=== PATIENT | male | born 1985 | race American Indian/Alaskan Native ===

== ENCOUNTER 2018-12-31 20:57 | Emergency (ER) | payer OTHER ==
--- NOTE | 2019-01-01 00:19 | Emergency Department Report ---
ED Alcohol HPI - General Chief Complaint: Alcohol Stated Complaint: ETOH Time Seen by Provider: 12/31/18 21:54 Source: EMS Mode of arrival: Stretcher Limitations: Physical Limitation - History of Present Illness Initial Comments: Patient is a 33-year-old male who presents with alcohol intoxication. Patient was brought in by EMS and was found wandering the streets. Further history is limited due to patient's intoxication. MD Complaint: alcohol intoxication Last Drink: unknown - Related Data Home Medications Medication Instructions Recorded Confirmed Last Taken No Known Home Medications [No 02/19/15 02/19/15 Unknown Reported Home Medications] Allergies Allergy/AdvReac Type Severity Reaction Status Date / Time No Known Allergies Allergy Verified 02/19/15 05:41 ED Review of Systems ROS: Stated complaint: ETOH Other details as noted in HPI Comment: Unobtainable due to pts medical conditions ED Past Medical Hx - Past Medical History Previous Medical History?: No - Surgical History Past Surgical History?: No - Social History Smoking Status: Unknown if ever smoked Substance Use Type: Alcohol - Medications Home Medications: Home Medications Medication Instructions Recorded Confirmed Last Taken Type No Known Home Medications [No 02/19/15 02/19/15 Unknown History Reported Home Medications] ED Physical Exam - General Limitations: Physical Limitation General appearance: alert, in no apparent distress - Head Head exam: Present: atraumatic, normocephalic - Eye Eye exam: Present: normal appearance - ENT ENT exam: Present: mucous membranes moist - Neck Neck exam: Present: normal inspection - Respiratory Respiratory exam: Present: normal lung sounds bilaterally. Absent: respiratory distress - Cardiovascular Cardiovascular Exam: Present: regular rate, normal rhythm. Absent: systolic mur mur, diastolic murmur, rubs, gallop - GI/Abdominal GI/Abdominal exam: Present: soft, normal bowel sounds - Rectal Rectal exam: Present: deferred - Extremities Exam Extremities exam: Present: normal inspection - Back Exam Back exam: Present: normal inspection - Neurological Exam Neurological exam: Present: other (intoxicated ) - Psychiatric Psychiatric exam: Present: other (intoxicated ) - Skin Skin exam: Present: warm, dry, intact, normal color. Absent: rash ED Course Vital Signs 12/31/18 21:48 Temperature 98 F Pulse Rate 77 Respiratory 16 Rate Blood Pressure 119/86 O2 Sat by Pulse 98 Oximetry ED Medical Decision Making - Lab Data Lab Results 12/31/18 Range/Units 22:02 Plasma/Serum Alcohol 0.20 H (0-0.07) % - Medical Decision Making Medical diagnosis: Alcohol intoxication. I will get a alcohol level while patient to be sober and will discharge patient back home. Critical care attestation.: If time is entered above; I have spent that time in minutes in the direct care of this critically ill patient, excluding procedure time. ED Disposition Clinical Impression: Alcohol intoxication Qualifiers: Complication of substance-induced condition: uncomplicated Qualified Code(s): F10.920 - Alcohol use, unspecified with intoxication, uncomplicated Disposition: DC-01 TO HOME OR SELFCARE Is pt being admited?: No Does the pt Need Aspirin: No Condition: Stable Referrals: DELMA GARCIA MD [Primary Care Provider] - 3-5 Days
[2019-01-01] MEDS ORDERED: XYLOCAINE 2% INFILTRATI ONE (01:36)
[2019-01-01 04:33] VITALS: BP 121/79
== END 2019-01-01 04:34 | disposition home or self-care (01) ==
LOC: ED 20:57
DX: F10.920 Alcohol use, unspecified with intoxication, uncomplicated (principal); Z79.899 Other long term (current) drug therapy
CPT/HCPCS: 36415; 99284; G0480; 80320

== ENCOUNTER 2019-07-06 19:05 | Emergency (ER) | payer SELFPAY ==
--- NOTE | 2019-07-06 19:15 | Emergency Department Report ---
Blank Doc - Documentation Documentation: This is a 34-year-old male that presents with lower back pain after heavy lift ing. This initial assessment/diagnostic orders/clinical plan/treatment(s) is/are subject to change based on patient's health status, clinical progression and re- assessment by fellow clinical providers in the ED. Further treatment and workup at subsequent clinical providers discretion. Patient/guardians urged not to elope from the ED as their condition may be serious if not clinically assessed a nd managed. Initial orders include: 1- Patient sent to [facility] for further evaluation and treatment 2- xray
--- NOTE | 2019-07-06 19:49 | XRay Report ---
Lumbosacral spine, 2 views INDICATION: Pain following injury 4 days ago FINDINGS: The vertebral body heights and disc spaces are preserved. No fracture or spondylolisthesis. No spurring or arthritis. No bony abnormality identified. Impression: Normal lumbar spine radiograph. Signer Name: Chip Obregon MD Signed: 07/06/2019 7:45 PM Workstation Name: [id number]
--- NOTE | 2019-07-07 00:27 | Emergency Department Report ---
ED Back Pain/Injury HPI - General Chief Complaint: Back Pain/Injury Stated Complaint: LOWER BACK PAIN Time Seen by Provider: 07/06/19 19:14 Source: patient Limitations: No Limitations - History of Present Illness Initial Comments: This is a 34-year-old male that presents with lower back pain after heavy lifting. Pain described as 5/10 there is no numbness no tingling paralysis no loss or decrease in bowel or bladder function pain radiation low back to right lower extremity is remains amateur to baseline per patient was steady gait. MD Complaint: back injury Onset/Timin -: days(s) Similar Symptoms Previously: Yes Place: work Radiation: right leg Severity: moderate Severity scale (0 -10): 5 Quality: aching Consistency: constant Improves With: none Worsens With: movement, sitting upright Context: turning/twisting, bending Associated Symptoms: denies: numbness, difficulty urinating, incontinence, fever/chills - Related Data Previous Rx's Medication Instructions Recorded Last Taken Type Cyclobenzaprine [Flexeril] 10 mg PO TID PRN #15 tablet 07/07/19 Unknown Rx Menthol/Camphor [[place] 1 applicatio TP QID PRN #1 tube 07/07/19 Unknown Rx Ointment] Naproxen [Naprosyn] 500 mg PO BID 10 Days #20 tablet 07/07/19 Unknown Rx Allergies Allergy/AdvReac Type Severity Reaction Status Date / Time No Known Allergies Allergy Verified 02/19/15 05:41 ED Review of Systems ROS: Stated complaint: LOWER BACK PAIN Other details as noted in HPI Constitutional: denies: chills, fever Eyes: as per HPI ENT: denies: ear pain, throat pain Respiratory: denies: cough, shortness of breath, wheezing Cardiovascular: denies: chest pain, palpitations Endocrine: no symptoms reported Gastrointestinal: denies: abdominal pain, nausea, diarrhea Genitourinary: denies: urgency, dysuria Musculoskeletal: back pain, other. denies: joint swelling, arthralgia, myalgia Skin: denies: rash, lesions Neurological: denies: headache, weakness, paresthesias ED Past Medical Hx - Past Medical History Previous Medical History?: No - Surgical History Past Surgical History?: No - Social History Smoking Status: Current Every Day Smoker Substance Use Type: None - Medications Home Medications: Home Medications Medication Instructions Recorded Confirmed Last Taken Type Cyclobenzaprine [Flexeril] 10 mg PO TID PRN #15 tablet 07/07/19 Unknown Rx Menthol/Camphor [[place] 1 applicatio TP QID PRN #1 tube 07/07/19 Unknown Rx Ointment] Naproxen [Naprosyn] 500 mg PO BID 10 Days #20 tablet 07/07/19 Unknown Rx ED Physical Exam - General Limitations: No Limitations General appearance: alert, in no apparent distress - Head Head exam: Present: atraumatic, normocephalic - Eye Eye exam: Present: normal appearance, PERRL, EOMI Pupils: Present: normal accommodation - ENT ENT exam: Present: normal orophraynx, mucous membranes moist, TM's normal bilaterally, normal external ear exam - Neck Neck exam: Present: normal inspection, tenderness, full ROM. Absent: lymphadenopathy, thyromegaly - Respiratory Respiratory exam: Present: normal lung sounds bilaterally. Absent: respiratory distress, wheezes, stridor, chest wall tenderness - Cardiovascular Cardiovascular Exam: Present: regular rate, normal rhythm, normal heart sounds. Absent: systolic murmur, diastolic murmur, rubs, gallop - GI/Abdominal GI/Abdominal exam: Present: soft, normal bowel sounds. Absent: distended, tenderness, guarding, rebound, rigid, bruit, hernia - Rectal Rectal exam: Present: deferred - Extremities Exam Extremities exam: Present: normal inspection, full ROM, normal capillary refill. Absent: tenderness, pedal edema, joint swelling, calf tenderness - Back Exam Back exam: Present: normal inspection, full ROM, tenderness. Absent: muscle spasm, paraspinal tenderness, vertebral tenderness - Neurological Exam Neurological exam: Present: alert, oriented X3, CN II-XII intact, normal gait, reflexes normal. Absent: motor sensory deficit - Psychiatric Psychiatric exam: Present: normal affect, normal mood - Skin Skin exam: Present: warm, dry, intact, normal color. Absent: rash ED Course Vital Signs 07/06/19 19:16 Temperature 98.9 F Pulse Rate 94 H Respiratory 18 Rate Blood Pressure 148/87 O2 Sat by Pulse 97 Oximetry ED Medical Decision Making - Radiology Data Radiology results: report reviewed, image reviewed Ordering Physician: DARRYL CONWAY NP Date of Service: 07/06/19 Procedure(s): XR spine lumbosacral 2-3V Accession Number(s): [id number] cc: DARRYL CONWAY NP Fluoro Time In Minutes: Lumbosacral spine, 2 views INDICATION: Pain following injury 4 days ago FINDINGS: The vertebral body heights and disc spaces are preserved. No fracture or spondylolisthesis. No spurring or arthritis. No bony abnormality identified. Impression: Normal lumbar spine radiograph. Signer Name: Chip Obregon MD Signed: 07/06/2019 7:45 PM Workstation Name: [id number] Transcribed By: JOSEP Dictated By: Chip Obregon MD Electronically Authenticated By: Chip Obregon MD Signed Date/Time: 07/06/191944 DD/ 43 TD/TT: - Medical Decision Making This is low back muscle strain plan NSAIDs muscle relaxants analgesic balm moist heat therapy back exercises follow up with PCP in 2-3 days return the ED should symptoms worsen patient verbalizes agreement and understanding of discharge plan DC'd home in stable condition at this time Critical care attestation.: If time is entered above; I have spent that time in minutes in the direct care of this critically ill patient, excluding procedure time. ED Disposition Clinical Impression: Low back strain Qualifiers: Encounter type: initial encounter Qualified Code(s): S39.012A - Strain of muscle, fascia and tendon of lower back, initial encounter Disposition: DC-01 TO HOME OR SELFCARE Is pt being admited?: No Does the pt Need Aspirin: No Condition: Stable Instructions: Low Back Strain (ED), Core Strengthening Exercises (GEN) Prescriptions: Cyclobenzaprine [Flexeril] 10 mg PO TID PRN #15 tablet PRN Reason: Muscle Spasm Naproxen [Naprosyn] 500 mg PO BID 10 Days #20 tablet Menthol/Camphor [[place] Ointment] 1 applicatio TP QID PRN #1 tube PRN Reason: pain Referrals: PRIMARY CARE, [Primary Care Provider] - 3-5 Days Forms: Work/School Release Form(ED) Time of Disposition: 00:35
[2019-07-07 01:01] VITALS: BP 151/84
== END 2019-07-07 00:59 | disposition home or self-care (01) ==
LOC: ED 19:05
DX: S39.012A Strain of muscle, fascia and tendon of lower back, initial encounter (principal); F17.200 Nicotine dependence, unspecified, uncomplicated; X58.XXXA Exposure to other specified factors, initial encounter; Y93.89 Activity, other specified; Y92.89 Other specified places as the place of occurrence of the external cause; Y99.8 Other external cause status
CPT/HCPCS: 72100

== ENCOUNTER 2020-11-24 09:04 | Emergency (ER) | payer SELFPAY ==
[2020-11-24 09:12] VITALS: BP 153/89
--- NOTE | 2020-11-24 09:45 | Emergency Department Report ---
- General Chief complaint: Skin Rash Stated complaint: RASH ON LT LEG Time Seen by Provider: 11/24/20 09:43 Source: patient Mode of arrival: Ambulatory Limitations: No Limitations - History of Present Illness Initial comments: 35-year-old female presents to the ER today complaint of rash to the anterior aspect of the left thigh. Onset 1 week ago. patient states that the areas were small raised areas when he first started, he admits that he has been picking at it, and no appears to be shallow superficially ulcerated/excoriated areas. He states that they are pruritic and nonpainful. Denies any drainage from them. He denies any apparent insect bites or injury to his thigh. He denies any fever or chills. He denies similar symptoms in the past. MD complaint: rash -: Gradual (1 week ago ) - Related Data Previous Rx's Medication Instructions Recorded Last Taken Type Cyclobenzaprine [Flexeril] 10 mg PO TID PRN #15 tablet 07/07/19 Unknown Rx Menthol/Camphor [[place] 1 applicatio TP QID PRN #1 tube 07/07/19 Unknown Rx Ointment] Naproxen [Naprosyn] 500 mg PO BID 10 Days #20 tablet 07/07/19 Unknown Rx Triamcinolone 0.1% [Kenalog 0.1% 1 applic TP TID #1 tube 11/24/20 Unknown Rx CREAM] cephALEXin [Keflex] 500 mg PO Q8HR #21 cap 11/24/20 Unknown Rx Allergies Allergy/AdvReac Type Severity Reaction Status Date / Time No Known Allergies Allergy Verified 11/24/20 09:08 Abscess Boil HPI - HPI Chief Complaint: Skin Rash Stated Complaint: RASH ON LT LEG Time Seen by Provider: 11/24/20 09:43 Home Medications: Previous Rx's Medication Instructions Recorded Last Taken Type Cyclobenzaprine [Flexeril] 10 mg PO TID PRN #15 tablet 07/07/19 Unknown Rx Menthol/Camphor [[place] 1 applicatio TP QID PRN #1 tube 07/07/19 Unknown Rx Ointment] Naproxen [Naprosyn] 500 mg PO BID 10 Days #20 tablet 07/07/19 Unknown Rx Triamcinolone 0.1% [Kenalog 0.1% 1 applic TP TID #1 tube 11/24/20 Unknown Rx CREAM] cephALEXin [Keflex] 500 mg PO Q8HR #21 cap 11/24/20 Unknown Rx Allergies/Adverse Reactions: Allergies Allergy/AdvReac Type Severity Reaction Status Date / Time No Known Allergies Allergy Verified 11/24/20 09:08 ED Review of Systems ROS: Stated complaint: RASH ON LT LEG Other details as noted in HPI Comment: All other systems reviewed and negative Constitutional: denies: chills, fever Respiratory: denies: cough, shortness of breath, wheezing Cardiovascular: denies: chest pain, palpitations Endocrine: no symptoms reported Gastrointestinal: denies: abdominal pain, nausea, diarrhea Genitourinary: denies: urgency, dysuria Musculoskeletal: denies: back pain, joint swelling, arthralgia Skin: rash Neurological: denies: headache, weakness, paresthesias Psychiatric: denies: anxiety, depression ED Past Medical Hx - Past Medical History Previous Medical History?: No - Surgical History Past Surgical History?: No - Social History Smoking Status: Never Smoker Substance Use Type: None - Medications Home Medications: Home Medications Medication Instructions Recorded Confirmed Last Taken Type Cyclobenzaprine [Flexeril] 10 mg PO TID PRN #15 tablet 07/07/19 Unknown Rx Menthol/Camphor [[place] 1 applicatio TP QID PRN #1 tube 07/07/19 Unknown Rx Ointment] Naproxen [Naprosyn] 500 mg PO BID 10 Days #20 tablet 07/07/19 Unknown Rx Triamcinolone 0.1% [Kenalog 0.1% 1 applic TP TID #1 tube 11/24/20 Unknown Rx CREAM] cephALEXin [Keflex] 500 mg PO Q8HR #21 cap 11/24/20 Unknown Rx ED Physical Exam - General Limitations: No Limitations General appearance: alert, in no apparent distress - Head Head exam: Present: atraumatic, normocephalic, normal inspection - Eye Eye exam: Present: normal appearance, PERRL, EOMI Pupils: Present: normal accommodation - Respiratory Respiratory exam: Absent: respiratory distress - Cardiovascular Cardiovascular Exam: Present: regular rate - Neurological Exam Neurological exam: Present: alert, oriented X3, CN II-XII intact - Psychiatric Psychiatric exam: Present: normal affect, normal mood - Skin Skin exam: Present: other (3 small flesh-colored mildly indurated superficially ulcerated/excoriated areas noted to the anterior aspect of the left thigh; no fluctuance. No tenderness to palpation. No pus drainage or any other drainage noted. No cellulitis.) ED Course Vital Signs 11/24/20 09:10 Temperature 98.2 F Pulse Rate 104 H Respiratory 20 Rate Blood Pressure 153/89 O2 Sat by Pulse 98 Oximetry ED Medical Decision Making - Medical Decision Making The patient is resting comfortably, is alert and in no distress. The patient has a normal mental status per age and is neurologically intact. The rash does not have petechiae or purpura. There are no mucous membrane lesions, no signs of abscess and no bullae. The patient appears well, is able to tolerate food or fluid by mouth and has no signs of systemic toxicity. The history, exam, and current condition do not demonstrate signs of sepsis or serious bacterial infection, [place] spotted fever, meningitis, meningococcemia, Lyme's di sease, toxic shock syndrome or other significant systemic illness requiring further treatment, testing or consultation in the emergency department. The vital signs have been stable. Exact cause of rash unclear, but he will be started on oral antibiotics to cover for possible secondary bacterial infection and topical steroid cream. The patient's condition is stable and appropriate for discharge. The patient or caregiver will pursue further outpatient evaluation with the primary care physician or other designated or consulting physician as indicated in the discharge instructions. Critical care attestation.: If time is entered above; I have spent that time in minutes in the direct care of this critically ill patient, excluding procedure time. ED Disposition Clinical Impression: Skin rash Disposition: DC-01 TO HOME OR SELFCARE Is pt being admited?: No Does the pt Need Aspirin: No Condition: Stable Instructions: Rash, Adult, [id number] Additional Instructions: Take the antibiotic starting today and completed. Use a steroid cream as prescribed. You can take Benadryl [id number] to help with itching as needed. You can stop using the tea tree oil and just use regular soap and water. Follow-up with the primary care doctor given on this discharge instruction. Return to the ER if your symptoms changes or worsens in any way. Prescriptions: cephALEXin [Keflex] 500 mg PO Q8HR #21 cap Triamcinolone 0.1% [Kenalog 0.1% CREAM] 1 applic TP TID #1 tube Referrals: MAJO RIGGS MD [Staff Physician] - 3-5 Days Time of Disposition: 09:51
== END 2020-11-24 10:08 | disposition home or self-care (01) ==
LOC: ED 09:04
DX: R21 Rash and other nonspecific skin eruption (principal); Z79.899 Other long term (current) drug therapy
CPT/HCPCS: 99282

== ENCOUNTER 2021-01-25 11:46 | Emergency (ER) | payer SELFPAY ==
[2021-01-25 12:00] VITALS: BP 157/70
--- NOTE | 2021-01-25 12:33 | Emergency Department Report ---
Chief Complaint: Urogenital-Male Stated Complaint: RASH/SPOTS ON THIGH&PENIS - HPI History of Present Illness: 35-year-old -Polish male presents to the emergency room complaining of lesions to his left thigh and now a lesion on his penis. Patient states it has been there for 1.5 months. He denies any pain or discharge. States he was seen here before given some antibiotic and cream and it cleared up but has returned. Patient never followed up with a primary care provider. Patient denies any fever chills or nausea no vomiting. Patient does admit to a mild dysuria but denies any penile discharge. - Exam Vital Signs: Vital Signs 01/25/21 11:59 Temperature 98.4 F Pulse Rate 96 H Respiratory 16 Rate Blood Pressure 157/70 O2 Sat by Pulse 100 Oximetry Physical Exam: Gen: alert oriented NAD Cardic: regular rate and rhythm no murmurs appreciated Resp: Clear to auscultation bilateral no wheezing no rales or rhonchi. Abdomen: Soft nontender nondistended normal bowel sounds. Mini neuro: Normal finger to nose exam, [id number] normal, Romberg neg, strengh 4/5 all extrimities, Alert and oriented time 3 Crainal nerve II-IIX intact Skin left anterior hip 3 nickel size lesions that are round clear center dry nontender : Circumcised penis with 2 nickel size to cankerous lesion to the right lateral penis nontender no discharge from the penile orifice MSE screening note: Focused history and physical exam performed. Due to findings the following was ordered: 35-year-old -Polish male presents to the emergency room complaining of lesions to his left thigh and now a lesion on his penis. Patient states it has been there for 1.5 months. He denies any pain or discharge. States he was seen here before given some antibiotic and cream and it cleared up but has returned. Patient never followed up with a primary care provider. Patient denies any fever chills or nausea no vomiting. Patient does admit to a mild dysuria but denies any penile discharge. Discussed with patient this possibly could be a STD that I recommend him to follow-up with the health department ED Disposition for MSE Disposition: MED SCREENING EXAM-LEFT Is pt being admited?: No Does the pt Need Aspirin: No Condition: Stable Additional Instructions: Please follow-up at the health department or community clinics for full STD evaluation. Referrals: [facility] [Outside] - 3-5 Days [facility] [Outside] - 3-5 Days [facility] [Outside] - 3-5 Days [facility] [Outside] - 3-5 Days
== END 2021-01-25 12:41 | disposition left against medical advice (07) ==
LOC: ED 11:46
DX: R21 Rash and other nonspecific skin eruption (principal); Z53.21 Procedure and treatment not carried out due to patient leaving prior to being seen by health care provider

== ENCOUNTER 2021-11-27 09:57 | Emergency (ER) | payer BC ==
--- NOTE | 2021-11-27 11:14 | Emergency Department Report ---
ED General Adult HPI - General Chief complaint: Back Pain/Injury Stated complaint: BACK PAIN Time Seen by Provider: 11/27/21 10:48 Source: patient Mode of arrival: Ambulatory Limitations: No Limitations - History of Present Illness Initial comments: 36-year-old -[place] male patient presents with complaints of left mid back pain x3 days. Patient states his pain began after work 1 day. He states at work he was doing repetitive heavy lifting of boxes and by the days and his back began to ache. He states he has been taking Tylenol PM without any improvement in his symptoms. Pain occurs mainly with movement. He denies any chest pain, shortness of breath, cough, numbness/tingling/weakness in his limbs, difficulty with ambulation, history of cancer, or steroid use. Patient rates current pain as a 7/10 in severity. No other past medical history or known drug allergies per patient - Related Data Previous Rx's Medication Instructions Recorded Last Taken Type Cyclobenzaprine [Flexeril] 10 mg PO TID PRN #15 tablet 07/07/19 Unknown Rx Menthol/Camphor [Enochs [place] 1 applicatio TP QID PRN #1 tube 07/07/19 Unknown Rx Ointment] Naproxen [Naprosyn] 500 mg PO BID 10 Days #20 tablet 07/07/19 Unknown Rx Triamcinolone 0.1% [Kenalog 0.1% 1 applic TP TID #1 tube 11/24/20 Unknown Rx CREAM] cephALEXin [Keflex] 500 mg PO Q8HR #21 cap 11/24/20 Unknown Rx Naproxen 500 mg PO BID PRN #20 tab 11/27/21 Unknown Rx methocarbamoL [Methocarbamol] 750 - 1,500 mg PO TID PRN #24 tab 11/27/21 Unknown Rx predniSONE [Deltasone] 20 mg PO BID 2 Days #4 tab 11/27/21 Unknown Rx Allergies Allergy/AdvReac Type Severity Reaction Status Date / Time No Known Allergies Allergy Verified 11/24/20 09:08 ED Review of Systems ROS: Stated complaint: BACK PAIN Other details as noted in HPI Constitutional: denies: chills, diaphoresis, fever, malaise, weakness Cardiovascular: denies: chest pain Gastrointestinal: denies: abdominal pain Genitourinary: denies: urgency, dysuria, frequency, hematuria Musculoskeletal: back pain Skin: denies: rash, change in color Neurological: denies: numbness, paresthesias, abnormal gait ED Past Medical Hx - Past Medical History Previous Medical History?: No Additional medical history: 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 rash to penis - Social History Smoking Status: Never Smoker Substance Use Type: None - Medications Home Medications: Home Medications Medication Instructions Recorded Confirmed Last Taken Type Cyclobenzaprine [Flexeril] 10 mg PO TID PRN #15 tablet 07/07/19 Unknown Rx Menthol/Camphor [Enochs [place] 1 applicatio TP QID PRN #1 tube 07/07/19 Unknown Rx Ointment] Naproxen [Naprosyn] 500 mg PO BID 10 Days #20 tablet 07/07/19 Unknown Rx Triamcinolone 0.1% [Kenalog 0.1% 1 applic TP TID #1 tube 11/24/20 Unknown Rx CREAM] cephALEXin [Keflex] 500 mg PO Q8HR #21 cap 11/24/20 Unknown Rx Naproxen 500 mg PO BID PRN #20 tab 11/27/21 Unknown Rx methocarbamoL [Methocarbamol] 750 - 1,500 mg PO TID PRN #24 tab 11/27/21 Unknown Rx predniSONE [Deltasone] 20 mg PO BID 2 Days #4 tab 11/27/21 Unknown Rx ED Physical Exam - General Limitations: No Limitations General appearance: alert, in no apparent distress - Head Head exam: Present: atraumatic, normocephalic - Eye Eye exam: Present: normal appearance. Absent: scleral icterus - Respiratory Respiratory exam: Present: normal lung sounds bilaterally. Absent: respiratory distress - Cardiovascular Cardiovascular Exam: Present: regular rate, normal rhythm - GI/Abdominal GI/Abdominal exam: Present: soft. Absent: tenderness - Extremities Exam Extremities exam: Present: full ROM - Back Exam Back exam: Present: full ROM, paraspinal tenderness (Tenderness to palpation noted to the left latissimus dorsi muscles without obvious deformities or skin changes noted). Absent: vertebral tenderness - Neurological Exam Neurological exam: Present: alert, oriented X3, normal gait. Absent: motor sensory deficit - Expanded Neurological Exam Expanded Sensory exam: Lower Extremity Light Touch: Normal Motor strength exam: RLE: 4, LLE: 4 - Psychiatric Psychiatric exam: Present: normal affect, normal mood - Skin Skin exam: Present: warm, dry, intact, normal color. Absent: rash ED Course Vital Signs 11/27/21 10:41 Temperature 99.1 F Pulse Rate 84 Respiratory 16 Rate Blood Pressure 124/69 O2 Sat by Pulse 96 Oximetry ED Medical Decision Making - Medical Decision Making 36-year-old -[place] male patient presents with complaints of left mid back pain x3 days. Patient states his pain began after work 1 day. He states at work he was doing repetitive heavy lifting of boxes and by the days and his back began to ache. He states he has been taking Tylenol PM without any improvement in his symptoms. Pain occurs mainly with movement. He denies any chest pain, shortness of breath, cough, numbness/tingling/weakness in his limbs, difficulty with ambulation, history of cancer, or steroid use. Patient rates current pain as a 7/10 in severity. No other past medical history or known drug allergies per patient Given history and exam, will treat for muscle strain with NSAIDs, icing, and stretching. Recommend follow-up with PCP in 3 to 5 days. He is well-appearing, his vitals are within normal limits, he is stable for discharge home. Discussed in detail signs and symptoms that should prompt immediate return to the emergency department with patient who verbalized understand Critical care attestation.: If time is entered above; I have spent that time in minutes in the direct care of this critically ill patient, excluding procedure time. ED Disposition Clinical Impression: Back pain Disposition: HOME / SELF CARE / HOMELESS Is pt being admited?: No Condition: Stable Instructions: Thoracic Strain, [id number] Prescriptions: predniSONE [Deltasone] 20 mg PO BID 2 Days #4 tab methocarbamoL [Methocarbamol] 750 - 1,500 mg PO TID PRN #24 tab PRN Reason: muscle spasm/tightness Naproxen 500 mg PO BID PRN #20 tab PRN Reason: pain Referrals: [facility] [Provider Group] - 3-5 Days Forms: Work/School Release Form(ED)
[2021-11-27 11:49] VITALS: BP 122/79
== END 2021-11-27 11:51 | disposition home or self-care (01) ==
LOC: ED 09:57
DX: M54.9 Dorsalgia, unspecified (principal); Z79.899 Other long term (current) drug therapy
CPT/HCPCS: 99282